=== PATIENT | female | born 1955 | race African-American/Black ===

== ENCOUNTER 2019-10-14 11:46 | Emergency (ER) | payer SELFPAY ==
[~2019-10-14] VITALS: Ht 162.6 cm; Wt 136.4 kg
[2019-10-14] MEDS ORDERED: PERTUSS(ACELL),DIPH,TET VAC/PF 0.5 ML VIAL IM ONE (13:15)
[2019-10-14] MEDS ORDERED: LIDOCAINE 2%/EPI 1:200,000/PF 20 ML VIAL INJ ONE (13:15)
[2019-10-14] MEDS ORDERED: BACITRACIN 0.9 GM PACKET OINTMENT TP ONE (13:15)
[2019-10-14] MEDS ORDERED: LIDOCAINE 1% 10 ML VIAL ONE (13:20)
[2019-10-14] MEDS ORDERED: LIDOCAINE/PF 1% 5 ML VIAL ONE (13:20)
[2019-10-14] MEDS ORDERED: LIDOCAINE/PF 1% 2 ML VIAL ONE (13:22)
[2019-10-14 13:45] VITALS: BP 133/66
== END 2019-10-14 14:00 | disposition home or self-care (01) ==
LOC: EMS 11:59
DX: S91.012A Laceration without foreign body, left ankle, initial encounter (principal); W45.8XXA Other foreign body or object entering through skin, initial encounter; Y93.89 Activity, other specified; Y92.89 Other specified places as the place of occurrence of the external cause; Y99.8 Other external cause status
CPT/HCPCS: 12002; 90471; 90715; 99283; J3490 ×2; J2001

== ENCOUNTER 2021-09-15 05:03 | Emergency (ER) | payer MEDICARE, MEDICAID ==
[~2021-09-15] VITALS: Ht 165.1 cm; Wt 135.4 kg
[2021-09-15 05:20] VITALS: BP 136/88
[2021-09-15] MEDS ORDERED: ACETAMINOPHEN 500 MG TABLET PO ONE (06:15)
== END 2021-09-15 06:30 | disposition home or self-care (01) ==
LOC: EMS 05:05
DX: M79.641 Pain in right hand (principal); J45.909 Unspecified asthma, uncomplicated; Z87.09 Personal history of other diseases of the respiratory system; Z98.890 Other specified postprocedural states
CPT/HCPCS: 99282; Z7502; Z7610